=== PATIENT | female | born 1945 | race Caucasian/White ===

== ENCOUNTER 2017-04-12 08:54 | Outpatient (CLI) | payer MEDICARE, OTHER ==
[~2017-04-12] VITALS: Ht 160 cm; Wt 68.0 kg
[~2017-04-12 08:54] MED LIST: AMLO2.5T PO; CALC500T49 PO; VITA100066 PO
[2017-04-12] MEDS ORDERED: NS 1,000 ML IV SCH (09:15)
[2017-04-12] MEDS ORDERED: PROPOFOL 500 MG/50 ML VIAL As Ordered ONE (10:39)
[2017-04-12] MEDS ORDERED: LIDOCAINE 2% INJ 100 MG/5 ML SDV (FOR ANES.) As Ordered ONE (10:39)
--- NOTE | 2017-04-12 11:13 | ROOR ---
Patient Name: Annie Colmenares Procedure Date: 04/12/2017 10:31 AM Date of : 1945 Age: 71 Room: [facility] Gender: Female Note Status: Finalized Procedure: Colonoscopy Indications: High risk colon cancer surveillance: Personal history of colonic polyps Providers: Jaciel Rucker Jr, MD Referring MD: Vesta Vazquez NP Requesting Provider: Medicines: Propofol per Anesthesia Complications: No immediate complications. Procedure: Pre-Anesthesia Assessment: - Prior to the procedure, a History and Physical was performed, and patient medications and allergies were reviewed. The patient is competent. The risks and benefits of the procedure and the sedation options and risks were discussed with the patient. All questions were answered and informed consent was obtained. Patient identification and proposed procedure were verified by the physician and the nurse in the pre-procedure area and in the procedure room. Mental Status Examination: alert and oriented. Airway Examination: normal oropharyngeal airway and neck mobility. Respiratory Examination: clear to auscultation. CV Examination: normal. ASA Grade Assessment: II - A patient with mild systemic disease. After reviewing the risks and benefits, the patient was deemed in satisfactory condition to undergo the procedure. The anesthesia plan was to use moderate sedation / analgesia (conscious sedation). Immediately prior to administration of medications, the patient was re-assessed for adequacy to receive sedatives. The heart rate, respiratory rate, oxygen saturations, blood pressure, adequacy of pulmonary ventilation, and response to care were monitored throughout the procedure. The physical status of the patient was re-assessed after the procedure. The Colonoscope was introduced through the anus and advanced to the cecum, identified by appendiceal orifice and ileocecal valve. The colonoscopy was performed without difficulty. The patient tolerated the procedure well. The quality of the bowel preparation was adequate and good. Findings: Six polyps were found in the recto-sigmoid colon, sigmoid colon, transverse colon and ascending colon. The polyps were small in size. These polyps were removed with a hot snare. Resection and retrieval were complete. A medium polyp was found in the rectum. The polyp was pedunculated. The polyp was removed with a hot snare. Resection and retrieval were complete. The appendiceal orifice and ileocecal valve appeared normal. Impression: - Six small polyps at the recto-sigmoid colon, in the sigmoid colon, in the transverse colon and in the ascending colon, removed with a hot snare. Resected and retrieved. - One medium polyp in the rectum, removed with a hot snare. Resected and retrieved. - The appendiceal orifice and ileocecal valve are normal. Recommendation: - Discharge patient to home (ambulatory). - Repeat colonoscopy in 3 years for surveillance. Jaciel Rucker MD Jaciel Rucker Jr, MD 04/12/2017 11:12:36 AM This report has been signed electronically. Number of Addenda: 0 Note Initiated On: 04/12/2017 10:31 AM Estimated Blood Loss: Estimated blood loss: none.
[2017-04-12 11:42] VITALS: BP 149/83
== END 2017-04-12 11:42 | disposition home or self-care (01) ==
LOC: M OPP 08:54
PROVIDERS: ATTEND Surgery
DX: Z12.11 Encounter for screening for malignant neoplasm of colon (principal); Z86.010 Personal history of colon polyps; D12.7 Benign neoplasm of rectosigmoid junction; D12.5 Benign neoplasm of sigmoid colon; D12.3 Benign neoplasm of transverse colon; D12.2 Benign neoplasm of ascending colon; K62.1 Rectal polyp; I10 Essential (primary) hypertension; R12 Heartburn; Z85.828 Personal history of other malignant neoplasm of skin; Z78.0 Asymptomatic menopausal state; R06.83 Snoring; F17.210 Nicotine dependence, cigarettes, uncomplicated; Z91.013 Allergy to seafood; Z79.899 Other long term (current) drug therapy; Z80.0 Family history of malignant neoplasm of digestive organs; Z80.8 Family history of malignant neoplasm of other organs or systems; Z80.7 Family history of other malignant neoplasms of lymphoid, hematopoietic and related tissues

== ENCOUNTER → 2017-10-10 | Outpatient (REF) | payer MEDICARE, OTHER ==
[2017-10-10 19:29] LABS: FERRITIN 239 NG/ML (8-252)
== END ==
LOC: M LAB REF 17:19
DX: L65.9 Nonscarring hair loss, unspecified (principal)
CPT/HCPCS: 82728

== ENCOUNTER → 2020-05-08 | Outpatient (CLI) | payer MEDICARE, OTHER ==
[~2020-05-08] MED LIST changes: +ALBU8.5H; -AMLO2.5T PO; +AMLO2.5T3 PO; +ATOR1TAB21; +CALC500T68 PO; +D31000TA2 PO; +SPIR12.9
== END ==
LOC: M LABSMTC 09:33
PROVIDERS: ATTEND Anesthesiology
DX: Z01.812 Encounter for preprocedural laboratory examination (principal); Z20.828 Contact with and (suspected) exposure to other viral communicable diseases
CPT/HCPCS: C9803; U0003

== ENCOUNTER 2020-05-13 08:07 | Day surgery (SDC) | payer MEDICARE, OTHER ==
[~2020-05-13] VITALS: Ht 160 cm; Wt 66.6 kg
[~2020-05-13 08:07] MED LIST changes: +NS 1,000 ML IV ONE
[2020-05-13] MEDS ORDERED: LIDOCAINE 2% MDV 20ML VIAL As Ordered ONE (08:27)
[2020-05-13] MEDS ORDERED: propofoL 500 MG/50 ML VIAL As Ordered ONE (08:27)
[2020-05-13] MEDS ORDERED: fentaNYL 100 MCG/2 ML INJECTION (J3010) As Ordered ONE (08:51)
--- NOTE | 2020-05-13 09:37 | ROOR ---
Patient Name: Annie Colmenares Procedure Date: 05/13/2020 8:47 AM Date of : 1945 Age: 75 Room: [facility] Gender: Female Note Status: Finalized Procedure: Colonoscopy Indications: High risk colon cancer surveillance: Personal history of colonic polyps Providers: Jaciel Rucker Jr, MD Referring MD: Vesta Vazquez NP Requesting Provider: Medicines: Propofol per Anesthesia Complications: No immediate complications. Procedure: Pre-Anesthesia Assessment: - Prior to the procedure, a History and Physical was performed, and patient medications and allergies were reviewed. The patient is competent. The risks and benefits of the procedure and the sedation options and risks were discussed with the patient. All questions were answered and informed consent was obtained. Patient identification and proposed procedure were verified by the physician and the nurse in the pre-procedure area and in the procedure room. Mental Status Examination: alert and oriented. Airway Examination: normal oropharyngeal airway and neck mobility. Respiratory Examination: clear to auscultation. CV Examination: normal. ASA Grade Assessment: II - A patient with mild systemic disease. After reviewing the risks and benefits, the patient was deemed in satisfactory condition to undergo the procedure. The anesthesia plan was to use moderate sedation / analgesia (conscious sedation). Immediately prior to administration of medications, the patient was re-assessed for adequacy to receive sedatives. The heart rate, respiratory rate, oxygen saturations, blood pressure, adequacy of pulmonary ventilation, and response to care were monitored throughout the procedure. The physical status of the patient was re-assessed after the procedure. The Colonoscope was introduced through the anus and advanced to the cecum, identified by appendiceal orifice and ileocecal valve. The colonoscopy was performed without difficulty. The patient tolerated the procedure well. The quality of the bowel preparation was adequate. Findings: Multiple polyps were found in the rectum, transverse colon, ascending colon and cecum. These polyps were removed with a hot snare. Resection was complete, but the polyp tissue was only partially retrieved. Multiple small and large-mouthed diverticula were found in the sigmoid colon. The recto-sigmoid colon and descending colon appeared normal. Impression: - Multiple polyps in the rectum, in the transverse colon, in the ascending colon and in the cecum, removed with a hot snare. Complete resection. Partial retrieval. - Diverticulosis in the sigmoid colon. - The recto-sigmoid colon and descending colon are normal. Recommendation: - Discharge patient to home (ambulatory). - Repeat colonoscopy in 3 years for surveillance. Jaciel Rucker MD Jaciel Rucker Jr, MD 05/13/2020 9:37:21 AM Electronically signed by Jaciel Rucker Jr, MD Number of Addenda: 0 Note Initiated On: 05/13/2020 8:47 AM Estimated Blood Loss: Estimated blood loss: none.
[2020-05-13 09:59] VITALS: BP 127/72
== END 2020-05-13 10:01 | disposition home or self-care (01) ==
LOC: M OPP 08:07
PROVIDERS: ATTEND Surgery
DX: Z12.11 Encounter for screening for malignant neoplasm of colon (principal); Z86.010 Personal history of colon polyps; Z80.0 Family history of malignant neoplasm of digestive organs; K63.5 Polyp of colon; K57.30 Diverticulosis of large intestine without perforation or abscess without bleeding; I10 Essential (primary) hypertension; E78.5 Hyperlipidemia, unspecified; F17.210 Nicotine dependence, cigarettes, uncomplicated; Z91.013 Allergy to seafood; Z79.899 Other long term (current) drug therapy
CPT/HCPCS: 45385; 88305; J3010

== ENCOUNTER → 2020-06-22 | Outpatient (REF) | payer MEDICARE, OTHER ==
[~2020-06-22] MED LIST changes: -NS 1,000 ML IV ONE
== END ==
LOC: M LAB REF 17:13
PROVIDERS: ATTEND Physician Assistant
DX: L57.0 Actinic keratosis (principal); L81.4 Other melanin hyperpigmentation
CPT/HCPCS: 11102; 17110; 88305; G0463

== ENCOUNTER → 2022-04-04 | Outpatient (CLI) | payer MEDICARE, OTHER ==
[~2022-04-04] MED LIST changes: -D31000TA2 PO; +VITA100093 PO
== END ==
LOC: M SOG 13:07
PROVIDERS: ATTEND Orthopaedic Surgery Adult Reconstructive Orthopaedic Surgery
DX: M16.0 Bilateral primary osteoarthritis of hip (principal); M25.561 Pain in right knee; M25.562 Pain in left knee

== ENCOUNTER → 2022-04-14 | Outpatient (CLI) | payer MEDICARE, OTHER | LOC: M PLAIMG 07:27 | PROVIDERS: ATTEND Orthopaedic Surgery Adult Reconstructive Orthopaedic Surgery | DX: M23.91 Unspecified internal derangement of right knee (principal); M22.41 Chondromalacia patellae, right knee; D16.21 Benign neoplasm of long bones of right lower limb ==

== ENCOUNTER → 2022-04-28 | Outpatient (CLI) | payer MEDICARE, OTHER ==
[~2022-04-28] MED LIST changes: +BUPIVACAINE HCL 0.5% 30ML VIAL As Ordered ONE; +ISOVUE-300 61% 50ML VIAL As Ordered ONE; +methylPREDNISolone 80MG/ML SUSP 1ML VIAL (J1040) As Ordered ONE
== END ==
LOC: M RAD 10:07
PROVIDERS: ATTEND Orthopaedic Surgery Adult Reconstructive Orthopaedic Surgery
DX: M25.851 Other specified joint disorders, right hip (principal)
CPT/HCPCS: 20610; 76000; J1040; Q9967

== ENCOUNTER → 2022-05-15 | Outpatient (REF) | payer MEDICARE, OTHER ==
[~2022-05-15] MED LIST changes: -BUPIVACAINE HCL 0.5% 30ML VIAL As Ordered ONE; -ISOVUE-300 61% 50ML VIAL As Ordered ONE; -methylPREDNISolone 80MG/ML SUSP 1ML VIAL (J1040) As Ordered ONE
== END ==
LOC: M SFHCDERM 17:17
PROVIDERS: ATTEND Physician Assistant
DX: L82.1 Other seborrheic keratosis (principal)

== ENCOUNTER → 2022-05-26 | Outpatient (CLI) | payer MEDICARE, OTHER | LOC: M PLAIMG 07:42 | PROVIDERS: ATTEND Orthopaedic Surgery Adult Reconstructive Orthopaedic Surgery | DX: M25.551 Pain in right hip (principal); M94.251 Chondromalacia, right hip; M25.451 Effusion, right hip; K57.30 Diverticulosis of large intestine without perforation or abscess without bleeding; D25.9 Leiomyoma of uterus, unspecified ==

== ENCOUNTER → 2022-07-03 | Outpatient (REF) | payer MEDICARE, OTHER | LOC: M SFHCDERM 17:02 | PROVIDERS: ATTEND Physician Assistant | DX: C44.619 Basal cell carcinoma of skin of left upper limb, including shoulder (principal) ==

== ENCOUNTER → 2022-11-24 | Outpatient (REF) | payer MEDICARE, OTHER ==
[2022-11-24 17:33] LABS: PERCENT SATURATION 28.3 % (13.2-45.0)
[2022-11-24 17:34] LABS: FERRITIN 146.3 NG/ML (7.3-270.7)
== END ==
LOC: M LAB REF 16:21
PROVIDERS: ATTEND Nurse Practitioner Adult Health
DX: D50.9 Iron deficiency anemia, unspecified (principal)

== ENCOUNTER → 2022-12-08 | Outpatient (REF) | payer MEDICARE, OTHER ==
[2022-12-08 15:30] LABS: INR 0.9; PROTHROMBIN TIME 12.3 SECONDS (12.5-14.5)
[2022-12-08 15:31] LABS: PARTIAL THROMBOPLASTIN TIME 26.4 SECONDS (24.8-34.2)
[2022-12-08 15:50] LABS: APPEARANCE, URINE CLEAR (CLEAR); BACTERIA, URINE AUTO NEGATIVE (NEGATIVE); BILIRUBIN, URINE AUTO NEGATIVE (NEGATIVE); BLOOD, URINE BLOOD NEGATIVE (NEGATIVE); COLOR, URINE YELLOW (YELLOW); GLUCOSE, URINE (UA) AUTO NEGATIVE (NEGATIVE); KETONE, URINE AUTO NEGATIVE (NEGATIVE); LEUKOCYTE ESTERASE, URINE AUTO NEGATIVE (NEGATIVE); NITRITE, URINE AUTO NEGATIVE (NEGATIVE); PROTEIN, URINE AUTO NEGATIVE (NEGATIVE); RBC, URINE AUTO 2 /HPF (0-3); SPECIFIC GRAVITY URINE AUTO 1.018 (1.002-1.035); SQUAMOUS EPITHELIAL CELL UR AU 1 /HPF (0-6); UROBILINOGEN, URINE AUTO 0.2 mg/dL (0.0-2.0); WBC, URINE AUTO 1 /HPF (0-3)
== END ==
LOC: M LAB REF 14:36
PROVIDERS: ATTEND Nurse Practitioner Adult Health
DX: Z01.810 Encounter for preprocedural cardiovascular examination (principal)

== ENCOUNTER → 2022-12-21 | Outpatient (CLI) | payer MEDICARE, OTHER | LOC: M LAB 12:19 | PROVIDERS: ATTEND Orthopaedic Surgery | DX: Z01.818 Encounter for other preprocedural examination (principal); M16.11 Unilateral primary osteoarthritis, right hip; M25.551 Pain in right hip | CPT/HCPCS: 36415; G0480 ==

== ENCOUNTER → 2023-04-23 | Outpatient (REF) | payer MEDICARE, OTHER | LOC: M SFHCDERM 16:04 | PROVIDERS: ATTEND Physician Assistant | DX: C44.41 Basal cell carcinoma of skin of scalp and neck (principal) ==

== ENCOUNTER 2023-07-21 08:50 | Emergency (ER) | payer MEDICARE, OTHER ==
[~2023-07-21] VITALS: Ht 160 cm; Wt 70.6 kg
[2023-07-21] MEDS ORDERED: PRED20TA (09:06)
[2023-07-21] MEDS ORDERED: DOXY100T27 (09:06)
[2023-07-21] MEDS ORDERED: ACET-683 PO (09:06)
[2023-07-21 10:50] VITALS: BP 132/64; TEMP 97.8; O2SAT 99
== END 2023-07-21 10:52 | disposition home or self-care (01) ==
LOC: M ED 08:50
DX: J40 Bronchitis, not specified as acute or chronic (principal); I10 Essential (primary) hypertension; F17.200 Nicotine dependence, unspecified, uncomplicated; F10.10 Alcohol abuse, uncomplicated; Z91.013 Allergy to seafood; Z79.52 Long term (current) use of systemic steroids; Z79.02 Long term (current) use of antithrombotics/antiplatelets; Z79.899 Other long term (current) drug therapy

== ENCOUNTER → 2023-11-01 | Outpatient (REF) | payer MEDICARE, OTHER ==
[~2023-11-01] MED LIST changes: +ACET-683 PO; +DOXY100T27; +PRED20TA
== END ==
LOC: M LAB REF 16:40
PROVIDERS: ATTEND Internal Medicine
DX: Z13.89 Encounter for screening for other disorder (principal)

== ENCOUNTER 2023-11-22 10:38 | Day surgery (SDC) | payer MEDICARE, OTHER ==
[~2023-11-22] VITALS: Ht 160 cm; Wt 68.0 kg
[~2023-11-22 10:38] MED LIST changes: +AMLO1TAB25 PO; -ATOR1TAB21; +ATOR1TAB21 PO
[2023-11-22] MEDS: NS 1,000 ML IV ONE (10:55)
[2023-11-22] MEDS: ceFAZolin SOD 2 GM in IV 1 EA IV ONE (11:05)
[2023-11-22] MEDS ORDERED: propofoL 200 MG/20 ML VIAL As Ordered ONE (11:17)
[2023-11-22 11:36] VITALS: TEMP 97.6
[2023-11-22 12:05] VITALS: BP 121/57; O2SAT 99
== END 2023-11-22 12:10 | disposition home or self-care (01) ==
LOC: M OPP 10:38
PROVIDERS: ATTEND Surgery
DX: Z12.11 Encounter for screening for malignant neoplasm of colon (principal); Z86.010 Personal history of colon polyps; Z80.0 Family history of malignant neoplasm of digestive organs; D12.6 Benign neoplasm of colon, unspecified; K57.30 Diverticulosis of large intestine without perforation or abscess without bleeding; F17.200 Nicotine dependence, unspecified, uncomplicated; Z79.02 Long term (current) use of antithrombotics/antiplatelets; Z79.1 Long term (current) use of non-steroidal anti-inflammatories (NSAID); Z79.51 Long term (current) use of inhaled steroids; Z79.899 Other long term (current) drug therapy; Z91.013 Allergy to seafood
CPT/HCPCS: 45385; 88305; J0690

== ENCOUNTER → 2024-02-27 | Outpatient (REF) | payer MEDICARE, OTHER | LOC: M SFHCDERM 17:40 | PROVIDERS: ATTEND Dermatology | DX: L57.8 Other skin changes due to chronic exposure to nonionizing radiation (principal) ==

== ENCOUNTER → 2024-02-29 | Outpatient (CLI) | payer MEDICARE, OTHER | LOC: M RAD 09:43 | PROVIDERS: ATTEND Internal Medicine | DX: Z12.2 Encounter for screening for malignant neoplasm of respiratory organs (principal); F17.210 Nicotine dependence, cigarettes, uncomplicated; J84.10 Pulmonary fibrosis, unspecified; J98.11 Atelectasis; I25.10 Atherosclerotic heart disease of native coronary artery without angina pectoris; I70.0 Atherosclerosis of aorta; R91.8 Other nonspecific abnormal finding of lung field ==

== ENCOUNTER → 2025-02-09 | Outpatient (CLI) | payer MEDICARE, OTHER | LOC: M RAD 11:09 | PROVIDERS: ATTEND Internal Medicine | DX: R91.8 Other nonspecific abnormal finding of lung field (principal) ==

== ENCOUNTER → 2025-07-08 | Outpatient (REF) | payer MEDICARE, OTHER ==
[2025-07-08 18:38] LABS: RSV AMPLIFICATION NEGATIVE (NEGATIVE)
== END ==
LOC: M LAB REF 17:30
DX: J06.9 Acute upper respiratory infection, unspecified (principal)